=== PATIENT | female | born 1980 | race Caucasian/White ===

== ENCOUNTER 2018-01-26 01:49 | Emergency (ER) | payer OTHER ==
--- NOTE | 2018-01-26 02:23 | ED Physician Documentation ---
Lower Extremity Injury - HISTORIAN Historian: patient - HPI Stated Complaint: dropped heavy clock on left great toe Chief Complaint: Lower Extremity Injury Additional Information: 37yo white female who dropped a metal clock on her left foot. Started to have some bleeding from the paranychial area. Has a throbbing pain. Pain is worse with movement. No numbness noted. Onset: hours (sround midnight) Where: home Severity: moderate Context: direct blow Modifying Factors:: pain on movement - ROS CONST: no problems - PAST HX Past History: other (hypothyroidism, anxiety) Immunizations: referred to PCP. denies: tetanus Allergies/Adverse Reactions: Allergies Allergy/AdvReac Type Severity Reaction Status Date / Time Penicillins Allergy Intermediate Rash Verified 01/26/18 02:08 Home Medications: Ambulatory Orders Medication Instructions Recorded Unobtainable 01/26/18 - SOCIAL HX Smoking History: non-smoker Alcohol Use: occasionally (once q two week) Drug Use: none - FAMILY HX Family History: no significant history - VITAL SIGNS Vital Signs: Vital Signs Temp Pulse Resp BP Pulse Ox 98.2 F 60 16 93/44 97 01/26/18 01:49 01/26/18 01:49 01/26/18 01:49 01/26/18 01:49 01/26/18 01:49 - REVIEWED ASSESSMENTS Nursing Assessment Reviewed: Yes Vitals Reviewed: Yes ED Results Lab/Radiology - Radiology Radiology Impressions: Three views of the left 1st toe Clinical history: Injury. Pain. Findings: Examination left 1st toe in plantar, lateral and oblique views fails to demonstrate evidence of fracture, dislocation or other bone or joint pathology. - Orders Orders: ED Orders Category Date Time Status Cleanse with NS and Chlorhexid 1T Care 01/26/18 02:13 Active TOES 2 VIEWS OR MORE [RAD] Stat Exams 01/26/18 Taken Diph,Pertuss(Acell),Tet Vac/Pf [Adacel] Med 01/26/18 04:00 Ordered 0.5 ml IM 1T Lower Extremities Injury Phy - Physical Exam General Appearance: mild distress Ankle: bilateral: non-tender, normal inspection, normal range of motion, no evidence of injury Foot: left foot: pain (left great toe), soft tissue tenderness (left great toe), swelling (left great toe.) Gait: limited by pain Neuro/Vascular/Tendon: no vascular compromise, sensation nml. No: abnml cap refill Resp/CVS: chest non-tender, breath sounds nml, heart sounds nml, no resp. distress, lungs clear, reg. rate & rhythm Discharge Clincal Impression: Contusion Referrals: Vinicio,DO Rodolfo [Primary Care Provider] - 2 Days Additional Instructions: Keep foot elevated with ice when possible. For pain management wear a stiff sole shoe, anitha tape 1st and 2nd toe together for comfort measures. Watch for any signs of infection. Condition: Stable Disposition: 01 HOME, SELF-CARE Decision to Admit: NO Date of Decison to Admit: 01/26/18 Decision Time: 03:06
[2018-01-26] MEDS ORDERED: DIPH,PERTUSS(ACELL),TET VAC/PF 0.5 ML DISP.SYRIN IM ONE (03:24)
[2018-01-26] MEDS: DIPH,PERTUSS(ACELL),TET VAC/PF 0.5 ML DISP.SYRIN IM SCH (03:26)
[2018-01-26 03:58] VITALS: BP 107/81
--- NOTE | 2018-01-26 10:56 | Diagnostic Imaging Report ---
MARJORIE KNIGHT [facility] [id number] [facility].[address] [id number] Report Submission Date: Jan 26, 2018 3:23:34 AM CDT Patient Study Name: ANNA PHILIPPE Date: Jan 26, 2018 2:40:20 AM CDT Modality Type: DX Gender: F Description: LOWER EXTREMITY : 82 Institution: [facility] Physician: MARJORIE KNIGHT Three views of the left 1st toe Clinical history: Injury. Pain. Findings: Examination left 1st toe in plantar, lateral and oblique views fails to demonstrate evidence of fracture, dislocation or other bone or joint pathology. Electronically signed on Jan 26, 2018 3:23:34 AM CDT by: Tadeo GUILLEN
== END 2018-01-26 03:37 | disposition home or self-care (01) ==
LOC: ED 01:49
DX: S90.112A Contusion of left great toe without damage to nail, initial encounter (principal); W22.8XXA Striking against or struck by other objects, initial encounter; Y92.9 Unspecified place or not applicable; Y93.9 Activity, unspecified; Y99.9 Unspecified external cause status
CPT/HCPCS: 73660; 90471; 90715